=== PATIENT | male | born 1975 | race Caucasian/White ===

== ENCOUNTER 2017-06-27 06:37 | Day surgery (SDC) | payer OTHER ==
--- NOTE | 2017-06-23 13:09 | DIAGNOSTIC IMAGING REPORT ---
KUB CLINICAL HISTORY: N20.0 Nephrolithiasis COMPARISON STUDY: No previous studies for comparison. FINDINGS: There is no pathologic bowel dilatation. There is a 3 mm calcification projected over the upper pole the left kidney. This may represent a small calculus. There are several nonspecific small pelvic basin calcifications. IMPRESSION: Probable 3 mm left renal calculus. Electronically signed by: Tyron Jaffe M.D. 06/23/2017 1:07 PM Dictated Date/Time: 06/23/2017 1:07 PM
[2017-06-23 13:18] LABS: BASO % 0.8 %; BASO ABS # 0.06 K/uL (0-0.2); COMPLETE YES; EOS % 1.8 %; HEMATOCRIT 44.5 % (42-52); IG% 0.3 %; LYMPH % 32.6 %; LYMPH ABS # 2.36 K/uL (1.2-3.4); MEAN CELL VOLUME 84.3 fL (80-100); MEAN CORPUSCULAR HGB CONC 33.3 g/dl (32-36); MEAN PLATELET VOLUME 9.7 fL (7.4-10.4); MONO % 7.2 %; NEUT % 57.3 %; PLATELET COUNT 419 K/uL (130-400); RED BLOOD COUNT 5.28 M/uL (4.7-6.1); WHITE BLOOD COUNT 7.24 K/uL (4.8-10.8)
--- NOTE | 2017-06-23 13:18 | DIAGNOSTIC IMAGING REPORT ---
CHEST 2 VIEWS ROUTINE CLINICAL HISTORY: Preoperative evaluation. Nephrolithiasis. COMPARISON STUDY: No previous studies for comparison. FINDINGS: The lung volumes are normal. Lungs are clear. No pneumothorax or pleural effusion is present. Cardiomediastinal silhouette is normal. Pulmonary vascularity is normal. IMPRESSION: No acute cardiopulmonary findings. Electronically signed by: Hans Rodrigues M.D. 06/23/2017 1:17 PM Dictated Date/Time: 06/23/2017 1:17 PM
[2017-06-23 13:39] LABS: BLOOD UREA NITROGEN 22 mg/dl (7-18); BUN/CREATININE RATIO 19.5 (10-20); CARBON DIOXIDE 23 mmol/L (21-32); CHLORIDE 108 mmol/L (98-107); GLUCOSE 111 mg/dl (70-99); POTASSIUM 3.6 mmol/L (3.5-5.1); SODIUM 139 mmol/L (136-145)
[2017-06-23 15:18] VITALS: Ht 175.3 cm; Wt 105.9 kg
[~2017-06-27] VITALS: Ht 175.3 cm; Wt 105.9 kg
[~2017-06-27 06:37] MED LIST: ATOR-22 PO; CARV6.25 PO; CHOL20007 PO; CLR10 PO; CYAN100020 PO; EMPA1TAB PO; FENO145T26 PO; FURO-85 PO; GABA800T PO; HYDR-3983 PO; INSDGI SC; LACTATED RINGER'S 1000ML 1,000 ML IV SCH; LINA1TAB PO; METF-384 PO; MIRT15TA2 PO; OMEG10007 PO; POTA10CA28 PO; TRAM-10 PO; ZONI100C39 PO
[2017-06-27 07:11] VITALS: BP 134/73; PULSE 84; TEMP 36.9; O2SAT 97
[2017-06-27] MEDS ORDERED: CIPROFLOXACIN 400MG / 200ML D5W ONE (07:39)
[2017-06-27] MEDS ORDERED: FENTANYL CITRATE INJ 50 MCG/1 ML 2 ML VIAL ONE ×3 (07:48→09:53)
[2017-06-27] MEDS ORDERED: MIDAZOLAM HCL 1 MG/ML 2ML VIAL ONE (07:48)
[2017-06-27] MEDS ORDERED: PHENYLEPHRINE 100MCG/ML 5ML SYR IV PRN (08:00)
[2017-06-27] MEDS ORDERED: LABETALOL HCL IV 5 MG/ML 20ML IV PRN (08:00)
[2017-06-27] MEDS ORDERED: ATROPINE SULFATE 0.1 MG/ML 5ML SYR IV PRN (08:00)
[2017-06-27] MEDS ORDERED: NALOXONE HCL 0.4 MG/1 ML VIAL/CARP IV PRN (08:00)
[2017-06-27] MEDS ORDERED: MEPERIDINE HCL 25 MG/ML CARP IV PRN (08:00)
[2017-06-27] MEDS ORDERED: ONDANSETRON INJ 2 MG/ML 2 ML VIAL IV PRN (08:00)
[2017-06-27] MEDS ORDERED: HYDROmorphone INJ 2 MG/ML SYR/VIAL IV PRN (08:00)
[2017-06-27] MEDS ORDERED: EpHEDrine SULFATE INJ 50 MG/ML AMP IV PRN (08:00)
[2017-06-27] MEDS ORDERED: FLUMAZENIL 0.1 MG/1 ML 10 ML VIAL IV PRN (08:00)
--- NOTE | 2017-06-27 08:53 | History & Physical Bridge Note ---
H&P Re-Evaluation Bridge Note: I have examined the patient, reviewed the History & Physical and in the interval since the performance of the History & Physical I have noted the following changes of clinical significance: No changes noted
[2017-06-27] MEDS ORDERED: CONRAY 30% 150ML BOTTLE ONE (09:06)
[2017-06-27] MEDS ORDERED: HYDR-3983 PO (10:31)
[2017-06-27] MEDS ORDERED: CEPH500C2 PO (10:31)
[2017-06-27] MEDS ORDERED: PHEN-775 PO (10:31)
--- NOTE | 2017-06-27 10:33 | Discharge Instructions ---
Discharge Instructions Date of Service Jun 27, 2017. Admission Reason for Admission: Stones Discharge Discharge Diagnosis / Problem: bilateral stone Discharge Goals Goal(s): Decrease discomfort, Improve function Activity Recommendations Activity Limitations: resume your previous activity Exercise/Sports Limitations: none Shower/Bathe: no limitations Driving or Machine Use: no limitations No driving on oral pain medication . Instructions / Follow-Up Instructions / Follow-Up Expect pelvic discomfort and blood in urine. May have burning with urination and flank pain. Call with any fevers or chills. Call if any pain issues. Current Hospital Diet Hospital Diet(s): Regular Diet Discharge Diet Recommended Diet: Regular Diet Procedures Procedures Performed: Cystoscopy, Bilateral Ureteroscopy, Laser Lithotripsy; Bilateral Stents Pending Studies Studies pending at discharge: no Medical Emergencies . Who to Call and When: Medical Emergencies: If at any time you feel your situation is an emergency, please call 911 immediately. . Non-Emergent Contact Non-Emergency issues call your: Primary Care Provider, Urologist Call Non-Emergent contact if: you have a fever, temperature is above 101, temperature is above 101.5, your pain is not controlled, your pain is worsening . . "Provider Documentation" section prepared by Obey Higginbotham,. . VTE Core Measure Inpt VTE Proph given/why not?: Celestine Miranda, KYLE's
[2017-06-27] MEDS ORDERED: PROPOFOL IV EMULSION 10 MG/ML 20 ML VIAL IV ONE (10:37)
[2017-06-27] MEDS ORDERED: ONDANSETRON INJ 2 MG/ML 2 ML VIAL ONE (10:37)
[2017-06-27] MEDS ORDERED: DEXAMETHASONE SOD INJ 4 MG/ML VIAL ONE (10:37)
[2017-06-27] MEDS ORDERED: LIDOCAINE HCL 2% 2 ML VIAL (20MG/ML) ONE (10:37)
--- NOTE | 2017-06-27 10:40 | DIAGNOSTIC IMAGING REPORT ---
RETROGRADE INCLUDES [facility] CLINICAL HISTORY: BILATERAL STENTS/ LAZER stent placement TECHNIQUE: Image intensifier COMPARISON STUDY: None FINDINGS: Image intensifier was used for bilateral ureteral stent placements. IMPRESSION: Image intensifier was used for bilateral ureteral stent placements. The above report was generated using voice recognition software. It may contain grammatical, syntax or spelling errors. Electronically signed by: Hay Diaz M.D. 06/27/2017 10:39 AM Dictated Date/Time: 06/27/2017 10:38 AM
--- NOTE | 2017-06-27 10:41 | [facility] Operative Report ---
Operative Report Operative Date Jun 27, 2017. Pre-Operative Diagnosis Nephrolithiasis Ureteral Stone Hydronephrosis Post-Operative Diagnosis Nephrolithiasis Ureteral Stone Hydronephrosis Procedure(s) Performed Cystoscopy, Bilateral Ureteroscopy, Laser Lithotripsy; Bilateral Retrograde pyelogram and Stents. Left stone basket extraction. Surgeon Dr. Higginbotham Thread Reeler Surgeon(s) None Estimated Blood Loss 5mL Findings Bilateral obstructing stones in mid to distal ureter. Bilateral renal stones. Specimens Specimen A. Left Ureteral Stone Drains 5 x 28 bilateral Anesthesia General Complication(s) None Disposition Recovery Room / PACU Indications Bilateral obstructing stones in mid to distal ureter. Risks and benefits discussed. Patient agreed. Description of Procedure Patient was consented and brought back to the operating room. Patient was placed under anesthesia and into the dorsal lithotomy position. A time out was completed. A 30degree Cystoscope was placed into the bladder and the entire bladder was examined. Of note, the patient had a stricture of the bulbar urethra which was bypassed with the scope. The UO's were identified. The right then the left ureter was cannulized with a catheter and a retrograde pyelogram was completed. A wire was then placed. The long rigid ureteroscope was selected and taken to the bladder and then into the right UO. The ureter was examined up to the mid ureter where a large stone was appreciated. The stone was pulverized to dust with the laser fiber on 0.4 and 20 Hz settings. The stone adequately broken, the scope was advanced to the proximal ureter. It was then slowly removed and the ureter examined. No residual fragments were appreciated. The scope was then placed into the left UO with wire in place. The scope was advanced to the mid ureter were the left stone was encountered. The stone was fragmented with the laser fiber. A basket was then selected and the fragments were removed and sent for analysis. With the ureter clear of stone fragments the scope was advanced to the proximal ureter and the entire ureter was examined distally. The scope was removed. The wire was backloaded onto the 30 degree cystoscope. With the wire in place, a 6 x 28 Double J stent was placed. It was confirmed with fluoroscopy. The left stent in place, the procedure was repeated to place the right 6 x 28cm stent. With the stents in place, the bladder was emptied. The scope was removed. The patient was cleaned, aroused from anesthesia, and transferred to the pacu in stable condition having tolerated the procedure well with no complications. I was present and participated in all aspects of the procedure. The patient will be monitored in the PACU until transferred. Patient has planned ESWL scheduled. Will likely treat renal stones at that time versus observation. Patient will likely need metabolic workup. I attest to the content of the Intraoperative Record and any orders documented therein. Any exceptions are noted below.
[2017-06-27] MEDS: FENTANYL CITRATE INJ 50 MCG/1 ML 2 ML VIAL IV PRN ×4 (10:48→11:05)
--- NOTE | 2017-06-27 11:15 | Anesthesiology Progress Note ---
Anesthesia Post Op Note Date & Time Jun 27, 2017 at 11:15 Vital Signs Pain Intensity: 4 Vital Signs Past 12 Hours Date Time Temp Pulse Resp B/P (MAP) Pulse Ox O2 Delivery O2 Flow Rate FiO2 06/27/17 11:00 87 16 143/94 96 Room Air 06/27/17 10:50 88 16 135/99 96 Room Air 06/27/17 10:40 90 16 128/87 100 Oxymask 10 06/27/17 10:34 36.4 94 16 135/92 99 Oxymask 10 06/27/17 07:11 36.9 84 18 134/73 (93) 97 Room Air Notes Mental Status: alert / awake / arousable, participated in evaluation Pt Amnestic to Procedure: Yes Nausea / Vomiting: adequately controlled Pain: adequately controlled Airway Patency, RR, SpO2: stable & adequate BP & HR: stable & adequate Hydration State: stable & adequate Anesthetic Complications: no major complications apparent
[2017-06-27 11:17] VITALS: BP 121/86; PULSE 83; TEMP 36.8; O2SAT 97
[2017-06-27 11:45] VITALS: BP 131/76; PULSE 86; O2SAT 98
[2017-06-27 12:15] VITALS: BP 130/80; PULSE 89; TEMP 36.5; O2SAT 95
[2017-06-28] MEDS ORDERED: CEPH500C2 PO (09:52)
[2017-06-28] MEDS ORDERED: HYDR-3983 PO (09:52)
[2017-06-28] MEDS ORDERED: PHEN-876 PO (09:52)
== END 2017-06-27 12:17 | disposition home or self-care (01) ==
LOC: C.ACU 06:37
PROVIDERS: ATTEND Urology
DX: N20.0 Calculus of kidney (principal); N20.1 Calculus of ureter; N13.30 Unspecified hydronephrosis; Z90.89 Acquired absence of other organs; Z90.49 Acquired absence of other specified parts of digestive tract; Z82.49 Family history of ischemic heart disease and other diseases of the circulatory system; Z80.42 Family history of malignant neoplasm of prostate; Z83.3 Family history of diabetes mellitus; Z84.1 Family history of disorders of kidney and ureter; E11.9 Type 2 diabetes mellitus without complications; Z79.84 Long term (current) use of oral hypoglycemic drugs; I10 Essential (primary) hypertension; E78.5 Hyperlipidemia, unspecified; E66.9 Obesity, unspecified

== ENCOUNTER → 2017-07-07 | Day surgery (SDC) | payer OTHER ==
[2017-06-28 09:55] VITALS: Ht 175.3 cm; Wt 105.9 kg
--- NOTE | 2017-07-05 08:50 | DIAGNOSTIC IMAGING REPORT ---
KUB CLINICAL HISTORY: N20.0 NephrolithiasisBefore appt w/Dr Shaw 07/05/[id number] nephrocalcinosis COMPARISON STUDY: 06/23/2017 FINDINGS: Interval placement of bilateral ureteral stents. Stents appear to be in good position. Unchanging 3 mm calcification upper pole left kidney. A potential 3 mm calcification lower pole right kidney versus overlap artifact. This was present in retrospect on the prior study. IMPRESSION: 1. Bilateral ureteral stents in good position. 2. Probable unchanging bilateral nephrocalcinosis. 3. Nonobstructive bowel pattern The above report was generated using voice recognition software. It may contain grammatical, syntax or spelling errors. Electronically signed by: Hay Diaz M.D. 07/05/2017 8:48 AM Dictated Date/Time: 07/05/2017 8:47 AM
[~2017-07-07] VITALS: Ht 175.3 cm; Wt 105.9 kg
[~2017-07-07] MED LIST changes: +CEPH500C2 PO; +CIPROFLOXACIN 400MG / D5W IV SCH; -OMEG10007 PO; +PHEN-876 PO
== END | disposition home or self-care (01) ==
LOC: EDSTATUS 08:30 → C.PAT 12:28
PROVIDERS: ATTEND Urology
DX: N20.0 Calculus of kidney (principal); Z53.9 Procedure and treatment not carried out, unspecified reason

== ENCOUNTER → 2017-09-20 | Outpatient (CLI) | payer OTHER ==
[~2017-09-20] MED LIST changes: -CIPROFLOXACIN 400MG / D5W IV SCH; -LACTATED RINGER'S 1000ML 1,000 ML IV SCH
[2017-09-20 12:59] LABS: BLOOD UREA NITROGEN 19 mg/dl (7-18); BUN/CREATININE RATIO 16.4 (10-20); CREATININE 1.14 mg/dl (0.60-1.40)
== END | disposition home or self-care (01) ==
LOC: C.LAB 11:41
PROVIDERS: ATTEND Urology
DX: N20.1 Calculus of ureter (principal)

== ENCOUNTER → 2017-10-04 | Outpatient (CLI) | payer OTHER ==
[~2017-10-04] MED LIST changes: +OPTIRAY 300 IV PRN
--- NOTE | 2017-10-04 14:36 | DIAGNOSTIC IMAGING REPORT ---
IVP W/OR W/O TOMOGRAMS HISTORY: 41 years-old Male KIDNEY STONES follow-up study in a patient with nephrolithiasis COMPARISON: [facility] 07/05/2017, CT 06/07/2017 TECHNIQUE: IVP with tomographic images were obtained utilizing 100 mL Optiray. A total of 12 images was submitted. FINDINGS: Law Instructor radiograph demonstrate bilateral nephrolithiasis, largest calculi measuring up to 5 mm projecting over the superior pole left kidney. There has been interval removal of the bilateral ureteral stents seen on comparison study. No definite ureteral calculi identified. Probable vascular calcifications of the pelvis. There is symmetric renal function bilaterally with prompt uptake of contrast into the bilateral renal parenchyma. There is symmetric excretion into the bilateral renal collecting systems. There is mild dilation of the right renal pelvis with smooth transitioning at the ureteropelvic junction. No focal filling defect identified. The degree of renal pelvis dilation has slightly progressed from prior study 06/07/2017. No dilation of the collecting systems otherwise. The calyces appear sharp. Bilateral ureters are within normal limits. Only minimal post void residual. IMPRESSION: 1. Mild dilation of the right renal pelvis appears slightly progressed from comparison study 06/07/2017 with smooth narrowing at the ureteropelvic junction. There is however no significant calyceal dilation and there is also symmetric renal function bilaterally. These findings may reflect physiologic renal pelvis dilation, however a UPJ stricture is also within the differential. 2. Bilateral nephrolithiasis. The above report was generated using voice recognition software. It may contain grammatical, syntax or spelling errors. Electronically signed by: Errol Iqbal M.D. 10/04/2017 2:34 PM Dictated Date/Time: 10/04/2017 2:25 PM
== END | disposition home or self-care (01) ==
LOC: C.RAD 12:09
PROVIDERS: ATTEND Urology
DX: N20.1 Calculus of ureter (principal); N20.0 Calculus of kidney

== ENCOUNTER → 2017-10-06 | Outpatient (CLI) | payer OTHER ==
[~2017-10-06] MED LIST changes: +OMEG10007 PO; -OPTIRAY 300 IV PRN
[2017-10-06 12:49] LABS: BASO % 0.9 %; BASO ABS # 0.07 K/uL (0-0.2); COMPLETE YES; EOS % 2.1 %; HEMATOCRIT 42.7 % (42-52); IG% 0.3 %; LYMPH % 30.2 %; LYMPH ABS # 2.35 K/uL (1.2-3.4); MEAN CELL VOLUME 85.9 fL (80-100); MEAN CORPUSCULAR HEMOGLOBIN 30.6 pg (25-34); MEAN CORPUSCULAR HGB CONC 35.6 g/dl (32-36); MEAN PLATELET VOLUME 9.9 fL (7.4-10.4); MONO % 8.8 %; NEUT % 57.7 %; PLATELET COUNT 377 K/uL (130-400); RED BLOOD COUNT 4.97 M/uL (4.7-6.1); WHITE BLOOD COUNT 7.77 K/uL (4.8-10.8)
[2017-10-06 12:58] LABS: URINE APPEARANCE CLEAR (CLEAR); URINE BILIRUBIN NEG (NEG); URINE COLOR YELLOW; URINE NITRITE NEG (NEG); URINE PH 5.5 (4.5-7.5); URINE SPECIFIC GRAVITY 1.023 (1.000-1.030); UROBILINOGEN NEG (NEG)
[2017-10-06 13:03] LABS: MANUAL MICROSCOPIC REQUIRED? NO; REVIEW REQ? NO
[2017-10-06 13:23] LABS: BLOOD UREA NITROGEN 18 mg/dl (7-18); BUN/CREATININE RATIO 18.2 (10-20); CARBON DIOXIDE 24 mmol/L (21-32); CHLORIDE 106 mmol/L (98-107); CREATININE 0.99 mg/dl (0.60-1.40); POTASSIUM 3.7 mmol/L (3.5-5.1); SODIUM 136 mmol/L (136-145)
== END | disposition home or self-care (01) ==
LOC: C.LAB 10:03
PROVIDERS: ATTEND Urology
DX: N20.2 Calculus of kidney with calculus of ureter (principal)

== ENCOUNTER → 2017-10-19 | Outpatient (CLI) | payer OTHER ==
[~2017-10-19] MED LIST changes: -CEPH500C2 PO; -PHEN-876 PO
--- NOTE | 2017-10-19 15:46 | DIAGNOSTIC IMAGING REPORT ---
KUB CLINICAL HISTORY: 41 years-old Male presenting with N20.1 Ureteral stone. TECHNIQUE: Single supine view of the abdomen was obtained. COMPARISON: 10/04/2017. FINDINGS: Nonobstructive bowel gas pattern. No gross pneumoperitoneum. Allowing for bowel gas and stool, bilateral calcifications consistent with nephrolithiasis. Stable appearance of pelvic phleboliths. No convincing evidence of ureteral calculus. Osseous structures normal. Lung bases clear. IMPRESSION: 1. Bilateral nephrolithiasis. No convincing evidence of ureteral calculus. Electronically signed by: Bowen Melgoza M.D. 10/19/2017 3:45 PM Dictated Date/Time: 10/19/2017 3:41 PM
== END | disposition home or self-care (01) ==
LOC: C.RAD 15:13
PROVIDERS: ATTEND Urology
DX: N20.1 Calculus of ureter (principal)

== ENCOUNTER → 2017-10-20 | Day surgery (SDC) | payer OTHER ==
[2017-10-10 07:24] VITALS: Ht 175.3 cm; Wt 109.1 kg
[~2017-10-20] VITALS: Ht 175.3 cm; Wt 109.1 kg
[~2017-10-20] MED LIST changes: +ATROPINE SULFATE 0.1 MG/ML 5ML SYR IV PRN; +CIPROFLOXACIN / D5W 400 MG IV SCH; +DEXAMETHASONE SOD INJ 4 MG/ML VIAL ONE; +EpHEDrine SULFATE INJ 50 MG/ML AMP IV PRN; +EpHEDrine SULFATE INJ 50 MG/ML AMP ONE; +FENTANYL CITRATE INJ 50 MCG/1 ML 2 ML VIAL IV PRN; +FENTANYL CITRATE INJ 50 MCG/1 ML 2 ML VIAL ONE; +LACTATED RINGER'S 1000ML 1,000 ML IV SCH; +LIDOCAINE HCL 2% 2 ML VIAL (20MG/ML) ONE; +MIDAZOLAM HCL 1 MG/ML 2ML VIAL ONE; +ONDANSETRON INJ 2 MG/ML 2 ML VIAL IV PRN; +ONDANSETRON INJ 2 MG/ML 2 ML VIAL ONE; +OXYCODONE/ACETAMINOPHEN 5-325 TAB ONE; +OXYCODONE/ACETAMINOPHEN 5-325 TAB PO PRN; +PROPOFOL IV EMULSION 10 MG/ML 20 ML VIAL IV ONE; +SODIUM CHLORIDE 0.9% 1000ML 1,000 ML IV SCH; +WATER, STERILE FOR INJ 10 ML VIAL ONE
--- NOTE | 2017-10-20 08:21 | Discharge Instructions-SurgCtr ---
Discharge Instructions Date of Service Oct 20, 2017. Visit Reason for Visit: kidney Stone Discharge Discharge Diagnosis / Problem: stone Discharge Goals Goal(s): Decrease discomfort, Improve function, Increase independence, Improve disease control Medications Stopped Medications Name(s): HELD FISH IOL FOR TEN DAYS AND METFORMIN FOR 48 HOURS Activity Recommendations Activity Limitations: resume your previous activity Lifting Limitations: none Exercise/Sports Limitations: none May Resume Sexual Activity: when tolerated Shower/Bathe: no limitations Driving or Machine Use: resume 1 day after discharge Anesthesia . Post Anesthesia Instructions: If you have had General Anesthesia or IV Sedation: * Do not drive today. * Resume driving when surgeon permits. * Do not make important decisions or sign legal documents today. * Call surgeon for: 1. Temperature elevations greater than 101 degrees F. 2. Uncontrollable pain. 3. Excessive bleeding. 4. Persistent nausea and vomiting. 5. Medication intolerance (nausea, vomiting or rash). * For nausea and vomiting use only clear liquids such as: tea, soda, bouillon until nausea subsides, then gradually increase diet as tolerated. * If you have any concerns or questions, call your surgeon's office. If physician is unavailable and it is an emergency, call 911 or go to the nearest emergency room. . Instructions / Follow-Up Instructions / Follow-Up Please keep your previously scheduled follow up appointment Diet Recommendations Home Diet: no limitations, resume previous diet Procedures Procedures Performed: Left Ureteral Extracorporeal Shock Wave Lithotripsy Pending Studies Studies pending at discharge: no Medical Emergencies . Who to Call and When: Medical Emergencies: If at any time you feel your situation is an emergency, please call 911 immediately. . Non-Emergent Contact Non-Emergency issues call your: Urologist Call Non-Emergent contact if: you have a fever, temperature is above 101.5 . . "Provider Documentation" section prepared by Tyler Hyde. .
--- NOTE | 2017-10-20 08:37 | [facility] Operative Report ---
Operative Report Operative Date Oct 20, 2017. Pre-Operative Diagnosis Left ureteral stone Post-Operative Diagnosis Same as pre-op Procedure(s) Performed Left Ureteral Extracorporeal Shock Wave Lithotripsy Surgeon Erp Programmer Surgeon(s) None Estimated Blood Loss Zero Findings small stone in the left kidney Specimens None Drains none Anesthesia gen Complication(s) None Disposition Recovery Room / PACU Indications left renal stone Description of Procedure The patient was identified in the preoperative holding area, appropriate informed consent was reviewed and completed and the patient was transported to the operating suite. Upon arrival appropriate preoperative antibiotics were administered and general anesthesia induced. The patient was placed in supine position and the stone was localized under fluoroscopy. A total of 2500 shocks were delivered to the stone. There appeared to be good fragmentation of the stone. Details of this procedure can be found on the [facility] information sheet. At the conclusion of the case the patient was extubated and taken to the PACU in stable condition. There were no complications. I attest to the content of the Intraoperative Record and any orders documented therein. Any exceptions are noted below.
[2017-10-20 09:03] VITALS: TEMP 36.9
--- NOTE | 2017-10-20 09:27 | Anesthesia Progress Nt - [facility] ---
Anesthesia Post Op Note Date & Time Oct 20, 2017 at 09:27 Vital Signs Pain Intensity: 4 Vital Signs Past 12 Hours Date Time Temp Pulse Resp B/P (MAP) Pulse Ox O2 Delivery O2 Flow Rate FiO2 10/20/17 09:11 89 16 119/77 (91) 96 Room Air 10/20/17 09:03 36.9 97 Room Air 10/20/17 09:02 88 14 94 10/20/17 09:02 91 14 10/20/17 09:01 131/93 10/20/17 08:57 95 26 93 10/20/17 08:57 95 26 10/20/17 08:56 126/97 10/20/17 08:55 91 27 10/20/17 08:55 91 27 94 10/20/17 08:51 129/81 10/20/17 08:50 93 26 94 10/20/17 08:50 94 26 10/20/17 08:46 123/86 10/20/17 08:45 92 29 10/20/17 08:45 92 29 97 10/20/17 08:44 92 27 10/20/17 08:44 92 27 95 10/20/17 08:41 126/79 10/20/17 08:40 122/86 10/20/17 08:39 94 94 10/20/17 08:39 94 10/20/17 08:39 36.4 93 18 122/86 96 Room Air 10/20/17 06:26 36.9 89 16 127/84 (98) 96 Room Air Notes Mental Status: alert / awake / arousable, participated in evaluation Pt Amnestic to Procedure: Yes Nausea / Vomiting: adequately controlled Pain: adequately controlled Airway Patency, RR, SpO2: stable & adequate BP & HR: stable & adequate Hydration State: stable & adequate Anesthetic Complications: no major complications apparent
[2017-10-20 09:42] VITALS: BP 126/80; PULSE 89; O2SAT 98
== END | disposition home or self-care (01) ==
LOC: X.SURG 06:08
PROVIDERS: ATTEND Urology
DX: N20.2 Calculus of kidney with calculus of ureter (principal); N13.30 Unspecified hydronephrosis; M19.90 Unspecified osteoarthritis, unspecified site; E11.9 Type 2 diabetes mellitus without complications; I25.2 Old myocardial infarction; E78.00 Pure hypercholesterolemia, unspecified; I10 Essential (primary) hypertension; Z90.89 Acquired absence of other organs; Z90.49 Acquired absence of other specified parts of digestive tract; Z82.49 Family history of ischemic heart disease and other diseases of the circulatory system; Z80.42 Family history of malignant neoplasm of prostate; Z83.3 Family history of diabetes mellitus; Z84.1 Family history of disorders of kidney and ureter; Z79.4 Long term (current) use of insulin; E66.9 Obesity, unspecified; I25.10 Atherosclerotic heart disease of native coronary artery without angina pectoris; E78.5 Hyperlipidemia, unspecified; Z87.442 Personal history of urinary calculi

== ENCOUNTER 2019-09-30 14:06 | Inpatient (IN) ==
[2019-09-30] MEDS ORDERED: SODIUM CHLORIDE 0.9% 1000ML 1,000 ML IV STA (14:27)
[2019-09-30] MEDS ORDERED: ONDANSETRON 4 MG OD TAB PO STA (14:27)
[2019-09-30] MEDS ORDERED: MoRPHine SULFATE 4 MG/ML 1 ML CARP\\VIAL IV STA (14:27)
[2019-09-30 15:01] LABS: Basophils # (auto) 0.03 K/uL (0-0.2); Basophils % (auto) 0.2 %; Eosinophils % (auto) 1.6 %; Hematocrit (blood only) 42.6 % (42-52); Hemoglobin 15.1 g/dL (14.0-18.0); Immature Granulocytes # (auto) 0.03 K/uL (0.00-0.02); Immature Granulocytes % (auto) 0.2 %; Lymphocytes # (auto) 2.49 K/uL (1.2-3.4); Lymphocytes % (auto) 20.5 %; Mean Corpuscular Hemoglobin 30.4 pg (25-34); Mean Corpuscular Hgb Conc 35.4 g/dL (32-36); Mean Corpuscular Volume 85.9 fL (80-100); Monocytes % (auto) 11.5 %; Platelet Count 418 K/uL (130-400); RDW Coefficient of Variation 12.8 % (11.5-14.5); Red Blood Count 4.96 M/uL (4.7-6.1); White Blood Count 12.15 K/uL (4.8-10.8)
[2019-09-30 15:18] LABS: Albumin Level 3.9 gm/dl (3.4-5.0); BUN Creatinine Ratio 10.4 (10-20); Creatinine Clr Calc Pharmacy 68.5 ml/min; Est GFR (African American) 57.6; Est GFR (Non-African American) 49.7; Potassium 3.3 mmol/L (3.5-5.1)
[2019-09-30 15:21] LABS: Bilirubin,Total 0.6 mg/dl (0.2-1); Globulin 3.7 gm/dl (2.5-4.0); Total Protein 7.6 gm/dl (6.4-8.2)
[2019-09-30] MEDS ORDERED: SODIUM CHLORIDE 0.9% 1000ML 1,000 ML IV ONE (15:26)
[2019-09-30] MEDS ORDERED: MoRPHine SULFATE 2 MG/ML CARP IV STA (15:45)
[2019-09-30 16:08] LABS: Appearance Urine Clear (Clear); Bacteria Urine Automated Negative (Negative); Bilirubin Urine Negative (Negative); Blood Urine 3+ (Negative); Cast Urine Automated 0 /lpf (0-5); Color Urine Yellow; Epithelial Cell Urine Auto 0-5 /lpf (0-5); Glucose Urine UA 1+ (Negative); Ketones Urine Negative (Negative); Leukocyte Esterase Urine Negative (Negative); Nitrite Urine Negative (Negative); Protein Urine Negative (Negative); RBC Urine Automated >30 /hpf (0-4); Specific Gravity Urine > 1.045 (1.000-1.030); Urobilinogen Urine Negative (Negative)
--- NOTE | 2019-09-30 16:50 | CT Scan Report ---
CT abd pelvis wo con CLINICAL HISTORY: 43 years-old Male presenting with left flank pain abnormal IVP eval for stone. TECHNIQUE: Multidetector CT of the abdomen and pelvis was performed without the use of intravenous co ntrast. IV contrast: None. One or more dose lowering techniques were used consistent with the princip les of ALARA (as low as reasonably achievable), including automatic exposure control, mA or kV adjust ment to individual patient size, and/or use of iterative reconstruction. COMPARISON: None. CT DOSE (mGy.cm): The estimated cumulative dose is 1043.70 mGycm. FINDINGS: Sock Knitting Machine Operator topogram: Unremarkable. Lung bases: Normal heart size. No pericardial or pleural effusion. No focal infiltrate or nodule at t he lung bases. Liver: Normal morphology. Density consistent with hepatic steatosis. Biliary: Mild biliary ductal prominence likely a reservoir effect in the post cholecystectomy state. Gallbladder surgically absent. Pancreas: Normal noncontrast appearance. Spleen: Normal noncontrast appearance. Adrenal glands: Normal noncontrast appearance. Kidneys and ureters: A persistent left nephrogram is evident after the recent IVP. Excreted contrast remains in the bilateral renal collecting systems. There is mild left pelvocaliectasis in comparison to the right. There is also distention of the left ureter. An obstructing 6 mm calculus may be presen t at the left ureterovesical junction though the presence of contrast within the ureter and urinary b ladder degrades evaluation. Overall limited evaluation for nephrolithiasis. No gross evidence of a re nal mass. No urothelial thickening. No right hydronephrosis or hydroureter. Bladder: Circumferential bladder wall thickening. Contrast within the urinary bladder limits evaluati on for bladder calculus. Pelvic organs: Normal noncontrast appearance. Bowel: The appendix is not visualized. No bowel obstruction. Peritoneal cavity: No free fluid or intraperitoneal gas. Lymph nodes: No gross lymphadenopathy allowing for noncontrast technique. Vasculature: Normal noncontrast appearance. Abdominal wall: Normal. Musculoskeletal: Normal. IMPRESSION: 1. Obstructing 6 mm calculus suspected at the left ureterovesical junction with resultant mild left hydroureteronephrosis and a persistent left nephrogram. Evaluation is degraded by the presence of exc reted contrast within the ureters and urinary bladder. Overall limited evaluation for nephrolithiasis . Follow-up imaging with renal ultrasound and potentially abdominal radiographs to ensure the resolut ion of hydronephrosis and radiographic passage of a calculus. 2. Circumferential bladder wall thickening could suggest developing bladder outlet obstruction or cy stitis. Correlate with urinalysis. 3. Hepatic steatosis. 4. Status post cholecystectomy. Electronically signed by: Bowen Melgoza M.D. 09/30/2019 4:49 PM
[2019-09-30] MEDS ORDERED: HYDROmorphone INJ 0.5 MG/0.5 ML SYR IV STA (17:50)
[2019-09-30] MEDS ORDERED: MoRPHine SULFATE 2 MG/ML CARP IV PRN (17:57)
[2019-09-30] MEDS ORDERED: ONDANSETRON INJ 2 MG/ML 2 ML VIAL IV PRN (17:57)
[2019-09-30] MEDS ORDERED: ACETAMINOPHEN 325 MG TAB PO PRN (17:57)
[2019-09-30] MEDS ORDERED: GLUCAGON FOR INJ 1 MG VIAL SQ PRN (19:06)
[2019-09-30] MEDS ORDERED: CARBOHYDRATES FOR HYPOGLYCEMIA PO PRN (19:06)
[2019-09-30] MEDS ORDERED: GLUCOSE 10 TABS/TUBE PO PRN (19:06)
[2019-09-30] MEDS ORDERED: GLUCOSE 40% GEL 15 GM TUBE PO PRN (19:06)
[2019-09-30] MEDS ORDERED: DEXTROSE 50% 50 ML SYRINGE IV PRN (19:06)
[2019-09-30] MEDS ORDERED: Nursing to Pharmacy Communication ONE (19:55)
[2019-09-30] MEDS: MoRPHine SULFATE 4 MG/ML 1 ML CARP\\VIAL IV PRN (20:13)
[2019-09-30] MEDS: NSS + 20MEQ KCL 20 MEQ/1,000 ML BAG IV SCH (20:32)
[2019-09-30] MEDS: INSULIN ASPART 100 UNITS/ML 3 ML PEN SC SCH (20:43)
[2019-09-30] MEDS: INSULIN GLARGINE SOLOSTAR 100 UNITS/ML 3 ML PEN SQ SCH ×2 (20:45→22:26)
[2019-09-30] MEDS: FAMOTIDINE 20 MG TAB PO SCH (20:48)
[2019-09-30] MEDS: carvediloL 6.25 MG TAB PO SCH (20:48)
[2019-09-30] MEDS ORDERED: ATORVASTATIN 20 MG TAB PO SCH (21:00)
[2019-09-30] MEDS ORDERED: FENOFIBRATE NANOCRYSTALLIZED 145 MG TABLET PO SCH (21:00)
[2019-09-30] MEDS ORDERED: INSULIN ASPART 100 UNITS/ML 3 ML PEN SC SCH (21:00)
[2019-09-30] MEDS ORDERED: ZONISAMIDE 100 MG PO SCH (21:00)
--- NOTE | 2019-09-30 21:07 | Emergency Department Note ---
Entered by Darryn Aguero acting as a scribe for Abram Galloway MD History of Present Illness General Chief complaint: Flank Pain Time Seen by Provider: 09/30/19 14:20 Source: patient History of Present Illness Provider complaint: Flank pain Onset (ago): day(s) 2 Location: back and left Severity: similar to prior episodes Pain Consistency: + constant Maximum Pain Intensity: 8 Current Pain Intensity: 8 Relieved By: + other (Soaking in hot bath) Exacerbated By: + none Associated symptoms: + denies other symptoms (Hematuria) and + nausea/vomiting (No vomiting); no fever/chills The patient is a 43 year old male who presents to the Emergency Room with complaints of constant left sided flank pain that started about 2 days ago. The patient rates the pain as an 8/10 and notes soaking in a hot bath helps relieve it. The patient describes the pain as a lot of pressure and states nothing makes it worse. The patient endorses some associated nausea but denies any vomiting fevers, or hematuria. The patient reports that he was getting an IVP today that was ordered by Dr. Shaw as a year check up on his right kidney. 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 Shaw. During the exam there was a coincidental stone located on the left side. The patient adds that he has not been urinating much over the past 2 days and he has noticed stone fragments in his urine. The patient also notes he has been having some trouble moving his bowels over the past 2 days and today he passed a bowel movement that contained blood. The patient did mention that he has a history of internal hemorrhoids and attributes the hematochezia to straining. Home Medications Home Medications Medication Instructions Recorded Confirmed Type atorvastatin 20 mg PO HS 09/30/19 09/30/19 History carvedilol 6.25 mg PO BID 09/30/19 09/30/19 History cholecalciferol (vitamin D3) 2,000 unit PO QAM 09/30/19 09/30/19 History cyanocobalamin (vitamin B-12) 1,000 mcg PO QAM 09/30/19 09/30/19 History dulaglutide [Trulicity] 1.5 mg SUBCUT TH 09/30/19 09/30/19 History fenofibrate nanocrystallized 145 mg PO HS 09/30/19 09/30/19 History furosemide 20 mg PO QAM 09/30/19 09/30/19 History hydrocodone-acetaminophen 1 tab PO TID PRN 09/30/19 09/30/19 History insulin glargine [Basaglar KwikPen 10 unit SUBCUT BID 09/30/19 09/30/19 History U-100 Insulin] loratadine 10 mg PO QAM 09/30/19 09/30/19 History metformin 1,000 mg PO BID 09/30/19 09/30/19 History omega 0-ulp-vpr-fish oil [Fish Oil] 1 cap PO QAM 09/30/19 09/30/19 History potassium chloride 10 meq PO QAM 09/30/19 09/30/19 History tramadol 50 mg PO BID PRN 09/30/19 09/30/19 History zonisamide 100 mg PO HS 09/30/19 09/30/19 History Allergies Allergy/AdvReac Type Severity Reaction Status Date / Time No Known Allergies Allergy Unverified 09/30/19 14:47 Past Med/Surg History Medical History Kidney stone Family History Other No pertinent family history in first degree relatives Social History Preferred Language: Maltese Communication Ability: Effective Agricultural Commodities Grader Required: No Beliefs That Will Affect Care: None Current Living Situation: Family Other Information That Helps Us Care for You: No Feels Safe at Home: Yes Safety Concerns: Feels Safe At This Time Smoking Status: Former smoker Tobacco Type: cigarettes ; Do You Dip or Chew Tobacco: No ; Second Hand Exposure: Yes (at home - is a smoker) ; Hx Alcohol Use: Yes Alcohol type: hard liquor Hx Substance Use: Yes substance use type: marijuana Last Used Substance Other:: patient states "as a kid" Review of Systems See HPI for pertinent positives & negatives. and A total of 10 systems reviewed and were otherwise negative Physical Exam Vital Signs Vital Signs - 24 hr 09/30/19 14:10 09/30/19 16:05 Temperature 36.4 C L Temperature Source Oral Pulse Rate 108 H Pulse Rate [Apical] 82 Respiratory Rate 18 18 Blood Pressure 110/79 Blood Pressure [Left Arm] 112/82 Blood Pressure Mean 89 Blood Pressure Mean [Left Arm] 92 Pulse Oximetry 97 98 Oxygen Delivery Method Room Air Room Air Sepsis Recent Fever Within 48 Hours No Sepsis New/Unexplained Change in Mental Status No Sepsis Action Taken by Nursing No Action Required Constitutional: Vital signs reviewed. Eyes: Pupils are equal round reactive to light. Conjunctiva are noninjected. ENT: Pharynx is clear without erythema or exudate. Mucous membranes are moist. Neck supple without meningeal signs. Respiratory: Clear to auscultation bilaterally. Breath sounds are equal bilaterally. Cardiovascular: Regular rate and rhythm. No rubs or gallops. GI: Soft, nondistended and nontender. Bowel sounds are present. Musculoskeletal: No peripheral edema. No lower extremity tenderness. No CVA tenderness. Integumentary: No cyanosis. Neurological: The patient is awake and alert. No focal deficits. Psychiatric: Normal affect. Course Course 1422: Past medical records reviewed. The patient was evaluated in room B08, and a complete history and physical examination were performed. 1527: I reevaluated the patient and he is still having more pain. 1613: I spoke to Dr. Edie Adair about the patient's case. He recommended obtaining the CT scan. 1615: I updated the patient and he feels better but still has some pain. He confirmed that he does not drink alcohol and he does not have a gallbladder. 1700: I updated the patient on his test results. 1702: I spoke to Dr. Clara Hernnadez [facility] Hospitalist about the patient's case. He agr eed to accept the patient for further evaluation. 1750: The patient is requesting more pain medications. Consultations Consultation #1: I spoke to Dr. dEie Adair about the patient's case. He recommended obtaining the CT scan. Time: 16:13 Consultation #2: I spoke to Dr. Clara Hernandez [facility] Hospitalist about the patient's case. He agreed to accept the patient for further evaluation. Time: 17:02 Administered Medications Atorvastatin Calcium (Lipitor) 20 mg PO HS [facility] Stop: 10/30/19 20:59 Last Admin: 09/30/19 20:48 Dose: 20 mg Documented by: [id number] Carvedilol (Coreg) 6.25 mg PO BID [facility] Stop: 10/30/19 20:59 Last Admin: 09/30/19 20:48 Dose: 6.25 mg Documented by: [id number] Famotidine (Pepcid) 20 mg PO BID [facility] Stop: 10/30/19 20:59 Last Admin: 09/30/19 20:48 Dose: 20 mg Documented by: [id number] Fenofibrate (Tricor) 145 mg PO HS [facility] Stop: 10/30/19 20:59 Last Admin: 09/30/19 20:47 Dose: 145 mg Documented by: [id number] Potassium Chloride/Sodium Chloride (Normal Saline W/20 Meq Kcl) 20 meq in 1,000 mls @ 200 mls/hr IV .Q5H [facility] Stop: 10/30/19 19:05 Last Admin: 09/30/19 20:32 Dose: 200 mls/hr Documented by: [id number] Insulin Aspart (Novolog Flexpen) 0 units SC Q6 [facility] Stop: 10/31/19 00:00 Last Admin: 09/30/19 20:43 Dose: 2 units Documented by: [id number] Cosigned by: [id number] Morphine Sulfate (Morphine Sulfate) 4 mg IV Q4H PRN PRN Reason: Severe Pain Stop: 10/14/19 17:56 Last Admin: 09/30/19 20:13 Dose: 4 mg Documented by: [id number] Discontinued Medications Hydromorphone HCl (Dilaudid) 0.5 mg IV NOW STA Stop: 09/30/19 17:51 Last Admin: 09/30/19 17:53 Dose: 0.5 mg Documented by: [id number] Sodium Chloride (Nss 1000ml) 1,000 mls @ 999 mls/hr IV .Q1H1M STA Stop: 09/30/19 15:27 Last Infusion: 09/30/19 15:34 Dose: 0 mls/hr Documented by: [id number] Admin: 09/30/19 14:39 Dose: 999 mls/hr Documented by: [id number] Sodium Chloride (Nss 1000ml) 1,000 mls @ 999 mls/hr IV .Q1H1M ONE Stop: 09/30/19 16:26 Last Infusion: 09/30/19 17:00 Dose: 0 mls/hr Documented by: [id number] Admin: 09/30/19 15:33 Dose: 999 mls/hr Documented by: [id number] Morphine Sulfate (Morphine Sulfate) 4 mg IV NOW STA Stop: 09/30/19 14:28 Last Admin: 09/30/19 14:36 Dose: 4 mg Documented by: [id number] Morphine Sulfate (Morphine Sulfate) 2 mg IV NOW STA Stop: 09/30/19 15:46 Last Admin: 09/30/19 15:50 Dose: 2 mg Documented by: [id number] Ondansetron HCl (Zofran Odt) 4 mg PO NOW STA Stop: 09/30/19 14:28 Last Admin: 09/30/19 14:36 Dose: 4 mg Documented by: [id number] Medical Decision Making Differential Diagnosis Differential Diagnosis includes: Ureterolithiasis, hydronephrosis, UTI, dehydration, and HANANE, amongst others. Medical Records Attestation: I reviewed the patient's medical records. I did perform a limited focused review of portions of the patient's old chart on the electronic medical record. The patient had an IVP done today. The patient has an acute obstruction of the left kidney with no stone identified. Right kidney is normal. Home Medications Current Medication List: was personally reviewed by me Laboratory Data Attestation: I reviewed the patient's lab results. Result diagrams: 09/30/19 14:38 09/30/19 14:38 Lab Results 09/30/19 09/30/19 09/30/19 Range/Units 14:38 14:38 15:26 WBC 12.15 H (4.8-10.8) K/uL RBC 4.96 (4.7-6.1) M/uL Hgb 15.1 (14.0-18.0) g/dL Hct 42.6 (42-52) % MCV 85.9 (80-100) fL MCH 30.4 (25-34) pg MCHC 35.4 (32-36) g/dL RDW Std Deviation 40.0 (36.4-46.3) fL RDW Coeff of Clive 12.8 (11.5-14.5) % Plt Count 418 H (130-400) K/uL MPV 9.0 (7.4-10.4) fL Immature Gran % (Auto) 0.2 % Neut % (Auto) 66.0 % Lymph % (Auto) 20.5 % [place] % (Auto) 11.5 % Eos % (Auto) 1.6 % Baso % (Auto) 0.2 % Immature Gran # (Auto) 0.03 H (0.00-0.02) K/uL Neut # (Auto) 8.00 H (1.4-6.5) K/uL Lymph # (Auto) 2.49 (1.2-3.4) K/uL [place] # (Auto) 1.40 H (0.11-0.59) K/uL Eos # (Auto) 0.20 (0-0.5) K/uL Baso # (Auto) 0.03 (0-0.2) K/uL Sodium 135 L (136-145) mmol/L Potassium 3.3 L (3.5-5.1) mmol/L Chloride 102 (98-107) mmol/L Carbon Dioxide 24 (21-32) mmol/L Anion Gap 9.0 (3-11) BUN 17 (7-18) mg/dl Creatinine 1.68 H (0.6-1.4) mg/dl Est Cr Clr Drug Dosing 68.5 ml/min Est GFR ( Amer) 57.6 Est GFR (Non-Af Amer) 49.7 BUN/Creatinine Ratio 10.4 (10-20) Glucose 181 H (70-99) mg/dl POC Glucose (70-99) Calcium 9.0 (8.5-10.1) mg/dl Total Bilirubin 0.6 (0.2-1) mg/dl AST 8 L (15-37) U/L ALT 22 (12-78) U/L Alkaline Phosphatase 67 (45-117) U/L Total Protein 7.6 (6.4-8.2) gm/dl Albumin 3.9 (3.4-5.0) gm/dl Globulin 3.7 (2.5-4.0) gm/dl Albumin/Globulin Ratio 1.0 (0.9-2) Lipase 1158 H (73-393) U/L Urine Color Yellow Urine Appearance Clear (Clear) Urine pH 6.0 (4.5-7.5) Ur Specific [place] > 1.045 H (1.000-1.030) Urine Protein Negative (Negative) Urine Glucose (UA) 1+ H (Negative) Urine Ketones Negative (Negative) Urine Blood 3+ H (Negative) Urine Nitrite Negative (Negative) Urine Bilirubin Negative (Negative) Urine Urobilinogen Negative (Negative) Ur Leukocyte Esterase Negative (Negative) Urine WBC (Auto) 1-5 (0-5) /hpf Urine RBC (Auto) >30 H (0-4) /hpf U Hyaline Cast (Auto) 0 (0-5) /lpf U Epithel Cells (Auto) 0-5 (0-5) /lpf Urine Bacteria (Auto) Negative (Negative) 09/30/19 Range/Units 17:55 WBC (4.8-10.8) K/uL RBC (4.7-6.1) M/uL Hgb (14.0-18.0) g/dL Hct (42-52) % MCV (80-100) fL MCH (25-34) pg MCHC (32-36) g/dL RDW Std Deviation (36.4-46.3) fL RDW Coeff of Clive (11.5-14.5) % Plt Count (130-400) K/uL MPV (7.4-10.4) fL Immature Gran % (Auto) % Neut % (Auto) % Lymph % (Auto) % [place] % (Auto) % Eos % (Auto) % Baso % (Auto) % Immature Gran # (Auto) (0.00-0.02) K/uL Neut # (Auto) (1.4-6.5) K/uL Lymph # (Auto) (1.2-3.4) K/uL [place] # (Auto) (0.11-0.59) K/uL Eos # (Auto) (0-0.5) K/uL Baso # (Auto) (0-0.2) K/uL Sodium (136-145) mmol/L Potassium (3.5-5.1) mmol/L Chloride (98-107) mmol/L Carbon Dioxide (21-32) mmol/L Anion Gap (3-11) BUN (7-18) mg/dl Creatinine (0.6-1.4) mg/dl Est Cr Clr Drug Dosing ml/min Est GFR ( Amer) Est GFR (Non-Af Amer) BUN/Creatinine Ratio (10-20) Glucose (70-99) mg/dl POC Glucose 158 H (70-99) Calcium (8.5-10.1) mg/dl Total Bilirubin (0.2-1) mg/dl AST (15-37) U/L ALT (12-78) U/L Alkaline Phosphatase (45-117) U/L Total Protein (6.4-8.2) gm/dl Albumin (3.4-5.0) gm/dl Globulin (2.5-4.0) gm/dl Albumin/Globulin Ratio (0.9-2) Lipase (73-393) U/L Urine Color Urine Appearance (Clear) Urine pH (4.5-7.5) Ur Specific [place] (1.000-1.030) Urine Protein (Negative) Urine Glucose (UA) (Negative) Urine Ketones (Negative) Urine Blood (Negative) Urine Nitrite (Negative) Urine Bilirubin (Negative) Urine Urobilinogen (Negative) Ur Leukocyte Esterase (Negative) Urine WBC (Auto) (0-5) /hpf Urine RBC (Auto) (0-4) /hpf U Hyaline Cast (Auto) (0-5) /lpf U Epithel Cells (Auto) (0-5) /lpf Urine Bacteria (Auto) (Negative) Imaging Data Radiologist's Impression: Radiology results as stated below per my review and the radiologist's interpretation: CT abd pelvis wo con CLINICAL HISTORY: 43 years-old Male presenting with left flank pain abnormal IVP eval for stone. TECHNIQUE: Multidetector CT of the abdomen and pelvis was performed without the use of intravenous contrast. IV contrast: None. One or more dose lowering techniques were used consistent with the principles of ALARA (as low as reasonably achievable), including automatic exposure control, mA or kV adjustment to individual patient size, and/or use of iterative reconstruction. COMPARISON: None. CT DOSE (mGy.cm): The estimated cumulative dose is 1043.70 mGycm. FINDINGS: Topography Technician topogram: Unremarkable. Lung bases: Normal heart size. No pericardial or pleural effusion. No focal infiltrate or nodule at the lung bases. Liver: Normal morphology. Density consistent with hepatic steatosis. Biliary: Mild biliary ductal prominence likely a reservoir effect in the post cholecystectomy state. Gallbladder surgically absent. Pancreas: Normal noncontrast appearance. Spleen: Normal noncontrast appearance. Adrenal glands: Normal noncontrast appearance. Kidneys and ureters: A persistent left nephrogram is evident after the recent IVP. Excreted contrast remains in the bilateral renal collecting systems. There is mild left pelvocaliectasis in comparison to the right. There is also distention of the left ureter. An obstructing 6 mm calculus may be present at the left ureterovesical junction though the presence of contrast within the ureter and urinary bladder degrades evaluation. Overall limited evaluation for nephrolithiasis. No gross evidence of a renal mass. No urothelial thickening. No right hydronephrosis or hydroureter. Bladder: Circumferential bladder wall thickening. Contrast within the urinary bladder limits evaluation for bladder calculus. Pelvic organs: Normal noncontrast appearance. Bowel: The appendix is not visualized. No bowel obstruction. Peritoneal cavity: No free fluid or intraperitoneal gas. Lymph nodes: No gross lymphadenopathy allowing for noncontrast technique. Vasculature: Normal noncontrast appearance. Abdominal wall: Normal. Musculoskeletal: Normal. IMPRESSION: 1. Obstructing 6 mm calculus suspected at the left ureterovesical junction with resultant mild left hydroureteronephrosis and a persistent left nephrogram. Evaluation is degraded by the presence of excreted contrast within the ureters and urinary bladder. Overall limited evaluation for nephrolithiasis. Follow-up imaging with renal ultrasound and potentially abdominal radiographs to ensure the resolution of hydronephrosis and radiographic passage of a calculus. 2. Circumferential bladder wall thickening could suggest developing bladder outlet obstruction or cystitis. Correlate with urinalysis. 3. Hepatic steatosis. 4. Status post cholecystectomy. Electronically signed by: Bowen Melgoza M.D. 09/30/2019 4:49 PM Blood Pressure Blood Pressure Findings: Normal blood pressure MDM Narrative I did evaluate the patient as noted above. The patient is presenting with a 2- day history of left-sided flank pain. Coincidentally he had an IVP scheduled for today which was unrelated to his symptoms. This showed obstruction of his left ureteral system. He likely has a kidney stone there. IV access was established. The patient was placed on a continuous monitor car operator. I did treat the patient with normal saline IV. He is also given morphine and Zofran IV. He had continued pain and was given additional morphine IV. I did order a urine analysis. There is no evidence of infection. I did order and review the patient's blood work as noted in the electronic medical record. His white count is 12 but he does not have a fever. He is not anemic. His creatinine is elevated at 1.6. He was given additional normal saline IV. I also noticed that his lipase was over 1100. I did review the medications with the pharmacist who suggested that Trulicity is likely what caused the pancreatitis. The patient denies drinking alcohol and states that he had his gallbladder removed p reviously. He does state that the Trulicity was started recently and he was taken off insulin by his PCP. I did discuss the test results with him. He did have additional pain was given Dilaudid 0.5 mg IV. I did discuss case with Dr. Higginbotham of urology. He recommended obtaining a CT scan of the abdomen pelvis. I did order a CT of the abdomen and pelvis. I did review the images myself as well as the radiology report as described above. He has a 6 mm left ureteral stone with hydroureteronephrosis. I did discuss the case with the hospitalist and rehabilitation caseworker for further care and evaluation. Impression & Plan Acute pancreatitis, Obstructed, uropathy, Elevated serum creatinine, Ureterolithiasis Discharge Plan Visit Data *Final* Discharge Date/Time: 09/30/19 18:35 Chief Complaint: Flank Pain ED Provider: Abram Galloway Discharge Problem: Acute pancreatitis, Obstructed, uropathy, Elevated serum creatinine, Ureterolithiasis Patient Disposition: Admitted As Inpatient Discharge Instructions Interventions: ED Discharge Assessment Last Done: 09/30/19 18:35 Discharge Problem: Acute pancreatitis Qualifiers: Pancreatitis type: unspecified pancreatitis type Acute pancreatitis complication: unspecified Qualified Code(s): K85.90 - Acute pancreatitis without necrosis or infection, unspecified The scribe's documentation has been prepared under my direction and personally reviewed by me in its entirety. I confirm that the note above accurately reflects all work, treatment, procedures, and medical decision making performed by me.
[2019-09-30] MEDS ORDERED: PHARMACY GLYCEMIC MGMT CONSULT PRN (21:58)
--- NOTE | 2019-09-30 21:58 | History & Physical Report ---
Date of Service September 30, 2019 Assessment & Plan (1) Ureterolithiasis: Left UVJ NPO IVF strain urine Consult urology Pain and nausea control. (2) Hydronephrosis: (3) Acute pancreatitis: Patient does not drink ETOH He has had gallbladder removed Has not been having epigastric pain [place] secondary to recent addition of Trulicity to diabetes regiment. Will hold for now and monitor. (4) Type II diabetes mellitus: Continue Basaglar Sliding scale insulin coverage. History of Present Illness 43 y/o male presented to the ED with severe left flank pain of 2 days duration. He has not slept in 48 hours. + nausea no vomiting. He has history of many kidney stones and felt this was the cause. No F/C, cough, SOB, chest pain. The patient adds that he has not been urinating much over the past 2 days and he has noticed stone fragments in his urine. The patient also notes he has been having some trouble moving his bowels over the past 2 days and today he passed a bowel movement that contained blood. The patient did mention that he has a history of internal hemorrhoids and attributes the hematochezia to straining. Primary Care Provider: Rahul Fay Allergies Allergy/AdvReac Type Severity Reaction Status Date / Time No Known Allergies Allergy Unverified 09/30/19 14:47 Home Medications Home Medications Medication Instructions Recorded Confirmed Type atorvastatin 20 mg PO HS 09/30/19 09/30/19 History carvedilol 6.25 mg PO BID 09/30/19 09/30/19 History cholecalciferol (vitamin D3) 2,000 unit PO QAM 09/30/19 09/30/19 History cyanocobalamin (vitamin B-12) 1,000 mcg PO QAM 09/30/19 09/30/19 History dulaglutide [Trulicity] 1.5 mg SUBCUT TH 09/30/19 09/30/19 History fenofibrate nanocrystallized 145 mg PO HS 09/30/19 09/30/19 History furosemide 20 mg PO QAM 09/30/19 09/30/19 History hydrocodone-acetaminophen 1 tab PO TID PRN 09/30/19 09/30/19 History insulin glargine [Basaglar KwikPen 10 unit SUBCUT BID 09/30/19 09/30/19 History U-100 Insulin] loratadine 10 mg PO QAM 09/30/19 09/30/19 History metformin 1,000 mg PO BID 09/30/19 09/30/19 History omega 8-vsa-xpt-fish oil [Fish Oil] 1 cap PO QAM 09/30/19 09/30/19 History potassium chloride 10 meq PO QAM 09/30/19 09/30/19 History tramadol 50 mg PO BID PRN 09/30/19 09/30/19 History zonisamide 100 mg PO HS 09/30/19 09/30/19 History Past Med/Surg History Medical History Kidney stone Family History Other No pertinent family history in first degree relatives Social History Preferred Language: Spanish Communication Ability: Effective Bleacher Lard Required: No Beliefs That Will Affect Care: None Current Living Situation: Family Other Information That Helps Us Care for You: No Feels Safe at Home: Yes Safety Concerns: Feels Safe At This Time Smoking Status: Former smoker Tobacco Type: cigarettes ; Do You Dip or Chew Tobacco: No ; Second Hand Exposure: Yes (at home - is a smoker) ; Hx Alcohol Use: Yes Alcohol type: hard liquor Hx Substance Use: Yes substance use type: marijuana Last Used Substance Other:: patient states "as a kid" Review of Systems Review of Systems: All systems reviewed & are unremarkable except as noted in HPI & below Physical Exam Physical Exam: General- adult male, NAD Head- atraumatic Eyes- PERRL, EOMI, anicteric ENT- oropharynx clear Neck- supple, no JVD, no adenopathy, no thyromegaly. Lungs- clear to auscultation and percussion Heart- regular rhythm; no murmur, no gallop, no rub appreciated Abdomen- normal bowel sounds, soft, nontender. No epigastric tenderness. Extremities- no pretibial edema, no calf tenderness; peripheral pulses intact Neuro- alert, oriented x 3; PERRL, EOMI; audience development manager II-XII grossly intact, non-focal. Skin- warm & dry Results & Data Vital Signs (Past 12 Hours) Vital Signs Temp Pulse Pulse Pulse Resp BP BP 09/30/19 20:49 104 H 111/69 09/30/19 19:06 36.9 C 109 H 18 113/74 09/30/19 18:35 108 H 18 120/75 09/30/19 18:01 102 H 18 140/81 09/30/19 16:05 82 18 112/82 09/30/19 14:10 36.4 C L 108 H 18 110/79 Pulse Ox 09/30/19 20:49 09/30/19 19:06 97 09/30/19 18:35 97 09/30/19 18:01 97 09/30/19 16:05 98 09/30/19 14:10 97 Laboratory Results Laboratory Results WBC 12.15 K/uL (4.8-10.8) H 09/30/19 14:38 RBC 4.96 M/uL (4.7-6.1) 09/30/19 14:38 Hgb 15.1 g/dL (14.0-18.0) 09/30/19 14:38 Hct 42.6 % (42-52) 09/30/19 14:38 MCV 85.9 fL (80-100) 09/30/19 14:38 MCH 30.4 pg (25-34) 09/30/19 14:38 MCHC 35.4 g/dL (32-36) 09/30/19 14:38 RDW Std Deviation 40.0 fL (36.4-46.3) 09/30/19 14:38 RDW Coeff of [place] 12.8 % (11.5-14.5) 09/30/19 14:38 Plt Count 418 K/uL (130-400) H 09/30/19 14:38 MPV 9.0 fL (7.4-10.4) 09/30/19 14:38 Immature Gran % (Auto) 0.2 % 09/30/19 14:38 Neut % (Auto) 66.0 % 09/30/19 14:38 Lymph % (Auto) 20.5 % 09/30/19 14:38 [place] % (Auto) 11.5 % 09/30/19 14:38 Eos % (Auto) 1.6 % 09/30/19 14:38 Baso % (Auto) 0.2 % 09/30/19 14:38 Immature Gran # (Auto) 0.03 K/uL (0.00-0.02) H 09/30/19 14:38 Neut # (Auto) 8.00 K/uL (1.4-6.5) H 09/30/19 14:38 Lymph # (Auto) 2.49 K/uL (1.2-3.4) 09/30/19 14:38 [place] # (Auto) 1.40 K/uL (0.11-0.59) H 09/30/19 14:38 Eos # (Auto) 0.20 K/uL (0-0.5) 09/30/19 14:38 Baso # (Auto) 0.03 K/uL (0-0.2) 09/30/19 14:38 Sodium 135 mmol/L (136-145) L 09/30/19 14:38 Potassium 3.3 mmol/L (3.5-5.1) L 09/30/19 14:38 Chloride 102 mmol/L (98-107) 09/30/19 14:38 Carbon Dioxide 24 mmol/L (21-32) 09/30/19 14:38 Anion Gap 9.0 (3-11) 09/30/19 14:38 BUN 17 mg/dl (7-18) 09/30/19 14:38 Creatinine 1.68 mg/dl (0.6-1.4) H 09/30/19 14:38 Est Cr Clr Drug Dosing 68.5 ml/min 09/30/19 14:38 Est GFR ( Amer) 57.6 09/30/19 14:38 Est GFR (Non-Af Amer) 49.7 09/30/19 14:38 BUN/Creatinine Ratio 10.4 (10-20) 09/30/19 14:38 Glucose 181 mg/dl (70-99) H 09/30/19 14:38 POC Glucose 180 (70-99) H 09/30/19 20:34 Calcium 9.0 mg/dl (8.5-10.1) 09/30/19 14:38 Total Bilirubin 0.6 mg/dl (0.2-1) 09/30/19 14:38 AST 8 U/L (15-37) L 09/30/19 14:38 ALT 22 U/L (12-78) 09/30/19 14:38 Alkaline Phosphatase 67 U/L (45-117) 09/30/19 14:38 Total Protein 7.6 gm/dl (6.4-8.2) 09/30/19 14:38 Albumin 3.9 gm/dl (3.4-5.0) 09/30/19 14:38 Globulin 3.7 gm/dl (2.5-4.0) 09/30/19 14:38 Albumin/Globulin Ratio 1.0 (0.9-2) 09/30/19 14:38 Lipase 1158 U/L (73-393) H 09/30/19 14:38 Urine Color Yellow 09/30/19 15:26 Urine Appearance Clear (Clear) 09/30/19 15:26 Urine pH 6.0 (4.5-7.5) 09/30/19 15:26 Ur Specific [place] > 1.045 (1.000-1.030) H 09/30/19 15:26 Urine Protein Negative (Negative) 09/30/19 15:26 Urine Glucose (UA) 1+ (Negative) H 09/30/19 15:26 Urine Ketones Negative (Negative) 09/30/19 15:26 Urine Blood 3+ (Negative) H 09/30/19 15:26 Urine Nitrite Negative (Negative) 09/30/19 15:26 Urine Bilirubin Negative (Negative) 09/30/19 15:26 Urine Urobilinogen Negative (Negative) 09/30/19 15:26 Ur Leukocyte Esterase Negative (Negative) 09/30/19 15:26 Urine WBC (Auto) 1-5 /hpf (0-5) 09/30/19 15:26 Urine RBC (Auto) >30 /hpf (0-4) H 09/30/19 15:26 U Hyaline Cast (Auto) 0 /lpf (0-5) 09/30/19 15:26 U Epithel Cells (Auto) 0-5 /lpf (0-5) 09/30/19 15:26 Urine Bacteria (Auto) Negative (Negative) 09/30/19 15:26 Diagnostic Findings [facility], [place] [phone] CT Scan Report Patient: AVNI LOPEZ AAdmit Date: 09/30/19 MR#: [id number]: [address] Acct ID:[id number]: Date: 1975City Zip: [place] [address] Age: 43Location: ED Sex: M Room/Bed: Att Phy:Diagnosis: FLANK PAIN Shadia Phy: Rahul Fay M.D.Service Date: 09/30/19 [facility] Phy: Rahul Fay M.D.Interpreting Phy: Bowen Melgoza MD Admit Phy: Ordering Phy: Abram Galloway MD cc: ~ CT abd pelvis wo con CLINICAL HISTORY: 43 years-old Male presenting with left flank pain abnormal IVP eval for stone. TECHNIQUE: Multidetector CT of the abdomen and pelvis was performed without the use of intravenous contrast. IV contrast: None. One or more dose lowering techniques were used consistent with the principles of ALARA (as low as reasonably achievable), including automatic exposure control, mA or kV adjustment to individual patient size, and/or use of iterative reconstruction. COMPARISON: None. CT DOSE (mGy.cm): The estimated cumulative dose is 1043.70 mGycm. FINDINGS: Unhairing Inspector topogram: Unremarkable. Lung bases: Normal heart size. No pericardial or pleural effusion. No focal infiltrate or nodule at the lung bases. Liver: Normal morphology. Density consistent with hepatic steatosis. Biliary: Mild biliary ductal prominence likely a reservoir effect in the post cholecystectomy state. Gallbladder surgically absent. Pancreas: Normal noncontrast appearance. Spleen: Normal noncontrast appearance. Adrenal glands: Normal noncontrast appearance. Kidneys and ureters: A persistent left nephrogram is evident after the recent IVP. Excreted contrast remains in the bilateral renal collecting systems. There is mild left pelvocaliectasis in comparison to the right. There is also distention of the left ureter. An obstructing 6 mm calculus may be present at the left ureterovesical junction though the presence of contrast within the ureter and urinary bladder degrades evaluation. Overall limited evaluation for nephrolithiasis. No gross evidence of a renal mass. No urothelial thickening. No right hydronephrosis or hydroureter. Bladder: Circumferential bladder wall thickening. Contrast within the urinary bladder limits evaluation for bladder calculus. Pelvic organs: Normal noncontrast appearance. Bowel: The appendix is not visualized. No bowel obstruction. Peritoneal cavity: No free fluid or intraperitoneal gas. Lymph nodes: No gross lymphadenopathy allowing for noncontrast technique. Vasculature: Normal noncontrast appearance. Abdominal wall: Normal. Musculoskeletal: Normal. IMPRESSION: 1. Obstructing 6 mm calculus suspected at the left ureterovesical junction with resultant mild left hydroureteronephrosis and a persistent left nephrogram. Evaluation is degraded by the presence of excreted contrast within the ureters and urinary bladder. Overall limited evaluation for nephrolithiasis. Follow-up imaging with renal ultrasound and potentially abdominal radiographs to ensure the resolution of hydronephrosis and radiographic passage of a calculus. 2. Circumferential bladder wall thickening could suggest developing bladder outlet obstruction or cystitis. Correlate with urinalysis. 3. Hepatic steatosis. 4. Status post cholecystectomy. Electronically signed by: Bowen Melgoza M.D. 09/30/2019 4:49 PM Dictated: 09/30/19 1642 Transcribed: 09/30/191641 Code Status & VTE Plan VTE Prophylaxis Plan VTE Prophylaxis will be ordered: Yes PG Care Time/CCT Total # of Minutes Spent Total Time Spent: 55 Total Time Spent with Patient: Total time spent is greater than 50% in coordination of care (as documented) at patient's floor/unit and/or counseling patient: (1) Acute pancreatitis Acute pancreatitis complication: unspecified Pancreatitis type: unspecified pancreatitis type Qualified Code(s): K85.90 - Acute pancreatitis without necrosis or infection, unspecified
[2019-09-30] MEDS ORDERED: INSULIN GLARGINE SOLOSTAR 100 UNITS/ML 3 ML PEN SQ SCH (22:15)
[2019-10-01] MEDS: INSULIN ASPART 100 UNITS/ML 3 ML PEN SC SCH ×3 (00:02→12:54)
[2019-10-01] MEDS: MoRPHine SULFATE 4 MG/ML 1 ML CARP\\VIAL IV PRN (00:03)
[2019-10-01] MEDS: NSS + 20MEQ KCL 20 MEQ/1,000 ML BAG IV SCH ×4 (00:10→14:19)
[2019-10-01 06:10] LABS: Hematocrit (blood only) 37.5 % (42-52); Hemoglobin 12.9 g/dL (14.0-18.0); Mean Corpuscular Hgb Conc 34.4 g/dL (32-36); Mean Corpuscular Volume 87.2 fL (80-100); Mean Platelet Volume 9.2 fL (7.4-10.4); Platelet Count 340 K/uL (130-400); RDW Standard Deviation 41.2 fL (36.4-46.3); White Blood Count 5.95 K/uL (4.8-10.8)
[2019-10-01 06:47] LABS: BUN Creatinine Ratio 12.4 (10-20); Creatinine Clr Calc Pharmacy 96.8 ml/min; Est GFR (African American) 87.4; Est GFR (Non-African American) 75.4; Potassium 3.6 mmol/L (3.5-5.1)
[2019-10-01 08:23] LABS: Estimated Average Glucose 194 mg/dl; Hemoglobin A1C 8.4 % (4.5-5.6)
--- NOTE | 2019-10-01 08:27 | XRay Report ---
XR KUB/Abdomen 1 view CLINICAL HISTORY: 43 years-old Male presenting with left-sided renal calculus. TECHNIQUE: Single supine view of the abdomen was obtained. COMPARISON: 09/30/2019. FINDINGS: Nonobstructive bowel gas pattern. No gross pneumoperitoneum. Calcification now projects over the region of the bladder, previously at the level of the left ureter ovesical junction. This suggests passage of the left ureteral calculus into the bladder lumen. Few pe lvic phleboliths also noted. There may also be calculus at the upper pole of the left kidney no radio graphic evidence of a right renal calculus. Passage of the prior contrast within the urinary collecti ng systems. Faint left renogram may be present. Osseous structures normal. Lung bases clear. IMPRESSION: 1. Suspected passage of the left ureterovesical junction calculus into the bladder lumen. Electronically signed by: Bowen Melgoza M.D. 10/01/2019 8:25 AM
[2019-10-01] MEDS ORDERED: INSULIN GLARGINE SOLOSTAR 100 UNITS/ML 3 ML PEN SQ SCH ×2 (09:00→21:00)
[2019-10-01] MEDS ORDERED: LORATADINE 10 MG TAB PO SCH (09:00)
--- NOTE | 2019-10-01 09:08 | Pharmacy Report ---
Glycemic Control Consultation - Date of Service October 01, 2019 - Scope Scope: Glycemic Pharmacist consulted by Dr Menard on 09/30 for glycemic control and to write orders per [facility] inpatient glycemic control protocol - Objective Weight: 103.4 kg Accuchecks BSG (last 24hrs): 09/30/19 09/30/19 09/30/19 14:38 17:55 20:34 Glucose 181 H POC Glucose 158 H 180 H 09/30/19 10/01/19 10/01/19 23:53 05:36 05:51 Glucose 165 H POC Glucose 191 H 169 H Laboratory Data (last 24hrs): 09/30/19 10/01/19 14:38 05:36 Potassium 3.3 L 3.6 Carbon Dioxide 24 26 Anion Gap 9.0 5.0 Creatinine 1.68 H 1.19 D Est Cr Clr Drug Dosing 68.5 96.8 HbA1c: Hemoglobin A1c 8.4 % (4.5-5.6) H 10/01/19 05:36 - Recent Pertinent Medications Outpatient Anti-diabetic Regimen: * Basaglar 10 units BID, metformin 1 gm bid, dulaglutide 1.5 weekly * A1c = 8.4 % 10/01/19 Risk Factors for Insulin Resistance: * Diet: NPO - Assessment & Plan Assessment & Plan: ASSESSMENT: * 43 year old male admitted with severe flank pain, +nausea. PMHx significant for kidney stones. Patient also diabetic managed on basaglar, metformin, and trulicity. A1C on admission 8.4%. * Pharmacy consulted for glycemic management - patient NPO on admission * Received half of basaglar dose last evening - will continue this AM with 5 units * Started diet around lunch - adjusted CF/CR. Add a scale for Lantus tonight PLAN FOR INPATIENT GLYCEMIC CONTROL: * Pt is maintained on oral antidiabetic agents as an outpatient * Oral agents are not recommended for inpatient use d/t drug interactions, changing PO intake, and difficulty titrating for acute hyper/hypoglycemia. ADA recommends re-initiating outpatient oral agents 1-2 days prior to discharge if/when appropriate if they were held on admission. * Will hold oral agents for admission and utilize SQ basal bolus insulin regimen which is the recommended regimen for inpatient glycemic control. * Will initiate weight based insulin dosing for insulin angela patient and titrate based on BSG trends. * Basal insulin * Lantus 5 units this AM (NPO status) * Lantus BID based upon BSG -For BSG less than 120 - 5 units -For BSG 120-180 - 8 units -For BSG greater than 180 - 10 units * Bolus insulin * NovoLog per scale ACHS or Q6hrs while NPO * Goal Range: Low 110 mg/dL - High 140 mg/dL * Correction Factor: 25 mg/dL/unit * Nutritional / Prandial insulin per carb ratio of 1 unit per 8 grams CHO consumed * Please note that the plan above was derived based on current level of insulin resistance and hospital stress. These recommendations are appropriate for inpatient admission only. Plan of care upon discharge will need to be reassessed to avoid potential outpatient hypo/hyperglycemia. Thank you.
[2019-10-01] MEDS: carvediloL 6.25 MG TAB PO SCH (09:54)
[2019-10-01] MEDS: FAMOTIDINE 20 MG TAB PO SCH (09:54)
--- NOTE | 2019-10-01 12:40 | Urology Consultation ---
Date of Consultation October 01, 2019 Assessment & Plan (1) Ureterolithiasis: Kidney stones Fortunately, he passed a stone overnight and is now asymptomatic Stone for analysis now Question of acute pancreatitis upon arrival however his lipase dropped from 11 100-100 overnight he is now asymptomatic From my standpoint it is okay for him to eat, he can follow-up as an outpatient with Dr. Colin Martines to be discharged home from a standpoint History of Present Illness Attending Physician: Hossein Hahn History of Present Illness 43-year-old male with a long history of kidney stones who presented to the emergency room yesterday secondary to intractable left flank pain Associated nausea but no vomiting No fevers or chills Pain is been present for 24 hours prior to arrival Fortunately, after admission he received appropriate pain medication and he subsequently passed the stone overnight. He reports that he is 99% improved today The stone is visible on the screen He is no longer having nausea or abdominal pain As a secondary issue, he had a lipase of 1100 upon arrival, but repeated today it was 100 He does not seem to be exhibiting signs of acute pancreatitis Allergies Allergy/AdvReac Type Severity Reaction Status Date / Time No Known Allergies Allergy Unverified 09/30/19 14:47 Home Medications Home Medications Medication Instructions Recorded Confirmed Type atorvastatin 20 mg PO HS 09/30/19 09/30/19 History carvedilol 6.25 mg PO BID 09/30/19 09/30/19 History cholecalciferol (vitamin D3) 2,000 unit PO QAM 09/30/19 09/30/19 History cyanocobalamin (vitamin B-12) 1,000 mcg PO QAM 09/30/19 09/30/19 History dulaglutide [Trulicity] 1.5 mg SUBCUT TH 09/30/19 09/30/19 History fenofibrate nanocrystallized 145 mg PO HS 09/30/19 09/30/19 History furosemide 20 mg PO QAM 09/30/19 09/30/19 History hydrocodone-acetaminophen 1 tab PO TID PRN 09/30/19 09/30/19 History insulin glargine [Basaglar KwikPen 10 unit SUBCUT BID 09/30/19 09/30/19 History U-100 Insulin] loratadine 10 mg PO QAM 09/30/19 09/30/19 History metformin 1,000 mg PO BID 09/30/19 09/30/19 History omega 3-gdo-opo-fish oil [Fish Oil] 1 cap PO QAM 09/30/19 09/30/19 History potassium chloride 10 meq PO QAM 09/30/19 09/30/19 History tramadol 50 mg PO BID PRN 09/30/19 09/30/19 History zonisamide 100 mg PO HS 09/30/19 09/30/19 History Patient History Medical History Kidney stone Type II diabetes mellitus Family History Other No pertinent family history in first degree relatives Social History Preferred Language: Greek Communication Ability: Effective Sales And Business Development Manager Required: No Beliefs That Will Affect Care: None Current Living Situation: Family Feels Safe at Home: Yes Smoking Status: Former smoker Tobacco Type: cigarettes ; Second Hand Exposure: Yes (at home - is a smoker) ; Hx Alcohol Use: Yes Alcohol type: hard liquor Hx Substance Use: Yes substance use type: marijuana Review of Systems Constitutional: no fever, no chills and no fatigue Eyes: no worsening vision Ear, Nose, Mouth, Throat: no facial pain and no pain with swallowing Respiratory: no cough and no dyspnea Cardiovascular: no chest pain and no palpitations Gastrointestinal: + abdominal pain and + nausea; no vomiting Genitourinary: + flank pain Musculoskeletal: no back pain Integumentary: no rash and no urticaria Neurologic: no gait abnormality and no unsteadiness Psychiatric: no behavioral changes and no depression Endocrine: no fatigue Physical Exam 2 Constitutional: well developed and well nourished Neck: neck nontender Respiratory: normal respiratory effort; no respiratory distress and does not use accessory muscles Cardiovascular: Rate/Rhythm: regular rate Vessels: radial pulses present Extremities: no edema Gastrointestinal (Abdomen): Inspection/Auscultation: abdomen normal to inspection Percussion/Palpation: abdomen soft; abdomen nontender and no guarding Musculoskeletal: Head/Neck/Chest: normocephalic and head atraumatic Extremities: extremities normal to inspection Skin: no rashes and no lesions Trauma: no evidence of skin trauma Neurologic: awake; not obtunded Speech / Cognition: normal speech Motor/Sensory: no tremor Psychiatric: Orientation: alert and oriented x 3 Genitourinary: no CVA tenderness Lymphatic: no lymphadenopathy Results & Data Vital Signs (Past 12 Hours) Vital Signs Temp Pulse Resp BP Pulse Ox 10/01/19 09:35 78 128/77 10/01/19 08:25 36.5 C 92 H 18 125/82 96 PG Care Time/CCT Total # of Minutes Spent Total Time Spent with Patient: Total time spent is greater than 50% in coordination of care (as documented) at patient's floor/unit and/or counseling patient:
[2019-10-01] MEDS ORDERED: Nursing to Pharmacy Communication ONE (14:21)
--- NOTE | 2019-10-01 15:52 | Discharge Summary ---
Date of Service October 01, 2019 Admission HPI Per Admitting Provider 43 y/o male presented to the ED with severe left flank pain of 2 days duration. He has not slept in 48 hours. + nausea no vomiting. He has history of many kidney stones and felt this was the cause. No F/C, cough, SOB, chest pain. The patient adds that he has not been urinating much over the past 2 days and he has noticed stone fragments in his urine. The patient also notes he has been having some trouble moving his bowels over the past 2 days and today he passed a bowel movement that contained blood. The patient did mention that he has a history of internal hemorrhoids and attributes the hematochezia to straining. Principal Diagnosis left sided kidney stone - successful spontaneous passage Discharge Exam Constitutional well developed and well nourished; no acute distress ENMT external ear and nose normal, oropharynx normal Respiratory normal respiratory effort, lungs clear to auscultation Cardiovascular RRR, no murmur, no edema Heart Sounds: normal S1 and normal S2 Vessels: posterior tibial pulses present and dorsalis pedis pulses present Gastrointestinal (Abdomen) normal bowel sounds, soft, nontender, no hepatosplenomegaly Psychiatric A+Ox3, euthymic affect Discharge Data Allergies Allergy/AdvReac Type Severity Reaction Status Date / Time No Known Allergies Allergy Unverified 09/30/19 14:47 Consultations [facility] Procedures Performed CT abd/pelvis - IMPRESSION: 1. Obstructing 6 mm calculus suspected at the left ureterovesical junction with resultant mild left hydroureteronephrosis and a persistent left nephrogram. Evaluation is degraded by the presence of excreted contrast within the ureters and urinary bladder. Overall limited evaluation for nephrolithiasis. Follow-up imaging with renal ultrasound and potentially abdominal radiographs to ensure the resolution of hydronephrosis and radiographic passage of a calculus. 2. Circumferential bladder wall thickening could suggest developing bladder outlet obstruction or cystitis. Correlate with urinalysis. 3. Hepatic steatosis. 4. Status post cholecystectomy. 5. Normal appearing pancreas. Ordered Studies 09/30/19 16:15 CT abd pelvis wo con Stat Hospital Course (1) Ureterolithiasis: 6mm left-sided stone at the UVJ at time of admission. Was admitted for pain control, IVF, urology consultation, etc. Fortunately the patient successfully passed the stone without any intervention. Stone was sent for analysis. He will follow-up with urology as previously scheduled. Instructed on importance of good daily hydration for prevention of future stones. (2) Obstructed, uropathy: Presenting Cr 1.6, improving to 1.1 after spontaneous passage of the stone. (3) Acute pancreatitis: Lipase level was 1158 at time of admission. Despite the elevated lipase the patient had no radiographic evidence of pancreatitis and no anterior abdominal pain, emesis, etc consistent with pancreatitis. The patient denied any alcohol intake. With IV hydration that was intended for his acute kidney stone his lipase normalized by the next morning. I am uncertain if the patient actually had true acute pancreatitis. Perhaps his Trulicity made the lipase level rise. To be on safe side I asked the patient to hold his Trulicity at discharge and to f/u with his PCP for this. (4) Type II diabetes mellitus: Due to recent IVP dye the patient will need to hold his metformin at discharge and have a repeat BMP 24 hours after discharge to ensure stable creatinine. If Cr is stable metformin can be resumed at that time. See discussion above in "acute pancreatitis" re: Trulicity. (5) Essential (primary) hypertension: Control was satisfactory while here. (6) Mixed hyperlipidemia: Continue prior meds. Total Time Total Time Spent Total Time Spent (In Minutes): 35 Total Time Includes: Examination of the Patient, Discharge Planning and Medication Reconciliation Discharge Plan Discharge Items Patient Disposition: Home - Self-Care Reason For Visit: LEFT URETERAL KIDNEY STONE Discharge Diagnosis: 1. left-sided kidney stone - successfully passed 2. elevated lipase (pancreas test in the blood) - uncertain significance; no signs of pancreatitis on CAT scan and no symptoms from the pancreas. Due to trulicity? Level normal at time of discharge Activity: Resume your previous activity Non-emergency contact: Primary Care Provider and Urologist Call non-emergency contact if: you have any medication questions, your symptoms worsen, your pain is not controlled, your pain is worsening, your pain is unusual for you, your pain is concerning for you and you have a fever Follow-up/Referrals: Loco Shaw MD [Physician] - (see Dr Shaw as scheduled) Rahul Fay [Primary Care Provider] - (see Dr Fay within 1 week) Diet: Carb Consistent or DM2 and Low Fat Ambulatory Orders: Basic Metabolic Panel (Routine) Timeframe: 20191002 Location: Determined by Patient Ordered By: Hossein Browne Attending Provider Instructions: You were seen and treated for a left-sided 6mm kidney stone. Fortunately you successfully passed the stone while hospitalized. You were seen by the urology team - they have recommended follow-up in their [place] office on October 25 at 12:50 PM. Please continue to hydrate well on a daily basis at home; avoid excessive amounts of dark sodas, coffee and tea. In addition to the above your lipase test - a blood test for the pancreas - was mildly elevated at about 1000. It quickly normalized to 100 on day of discharge. The significance of the elevation at admission was uncertain as your CAT scan did not show inflammation of the pancreas and you did not have symptoms of pancreatitis. Perhaps the Trulicity medication for your diabetes made the level rise. Recommendations - 1. STOP your Trulicity for now. 2. Low fat diet for 7 days then resume normal intake. 3. INCREASE your basaglar insulin to 20 units twice a day starting this evening. 4. HOLD your metformin until repeat creatinine level (kidney level) is checked in the blood. 5. Have a blood draw on 10/02/19. Results should go to Dr Loco Shaw at [facility] and your family doctor. If the level is OK you can resume your metformin then. Follow-up - see separate section Return to [facility] if - * you have fever over 100.5 degrees * you have worsening abdominal pain, vomiting, severe nausea * you have chest pains or shortness of breath * you have painful urination, blood in the urine, etc * any other concerns Pending Studies at Discharge: Yes Studies:: kidney stone analysis Stand-Alone Forms: My [facility] [employer], Opioid Pain Management, Smoking Cessation Medications and DC Order Prescriptions: Continued carvedilol 6.25 mg tablet 6.25 mg PO BID RF: 0 atorvastatin 20 mg tablet 20 mg PO HS RF: 0 potassium chloride 10 mEq tablet extended release 10 meq PO QAM RF: 0 tramadol 50 mg tablet 50 mg PO BID PRN (Reason: Pain) RF: 0 zonisamide 100 mg capsule 100 mg PO HS RF: 0 hydrocodone-acetaminophen 7.5-325 mg tablet 1 tab PO TID PRN (Reason: Pain) RF: 0 furosemide 20 mg tablet 20 mg PO QAM RF: 0 loratadine 10 mg tablet 10 mg PO QAM RF: 0 fenofibrate nanocrystallized 145 mg tablet 145 mg PO HS RF: 0 cholecalciferol (vitamin D3) 2,000 unit Tablet 2,000 unit PO QAM RF: 0 omega [id number] oil [Fish Oil] 1,000 mg (120 mg-180 mg) Capsule 1 cap PO QAM RF: 0 cyanocobalamin (vitamin B-12) 1,000 mcg Capsule 1,000 mcg PO QAM RF: 0 Changed Basaglar KwikPen U-100 Insulin 100 unit/mL (3 mL) insulin pen 20 unit SUBCUT BID Qty: 0 RF: 0 Discontinued metformin 1,000 mg tablet 1,000 mg PO BID RF: 0 Trulicity 1.5 mg/0.5 mL pen injector 1.5 mg SUBCUT TH RF: 0 Discharge Orders: Discharge Order (Routine); Ordered 10/01/19 Ordered By: Hossein Hess/Other Patient Handouts: Diabetes [facility] Complications, Diabetes Resources, Diabetes Type 2 Coping, Diabetes Healthy Meals, Diabetes Carbs, Diabetes Eating Out, Diabetes Exercise Benefits, Diabetes Activity Tips, Diabetes Living Life, Diabetes Manage A1C Test Admission Data Admit Date/Time: 09/30/19 17:57 Attending Provider: Hossein Hahn Admit Provider: Issa Elizabeth Primary Care Provider: Rahul Fay Other Providers: Issa Elizabeth ; Obey Higginbotham Other Interventions: Discharge Summary Assessment (RN) Last Done: 10/01/19 15:57 DC Date/Time DO NOT enter until pt leaves facility: 10/01/19 17:15
[2019-10-01] MEDS ORDERED: INSULIN ASPART 100 UNITS/ML 3 ML PEN SC SCH (16:30)
[2019-10-07 11:16] LABS: Component 2 DNR; Source Kidney
== END 2019-10-01 17:15 | disposition home or self-care (01) | DRG 693 ==
LOC: ED 14:06 → 3W 17:57 → SUATTDRO 17:57 → 3W 18:35